=== PATIENT | female | born 1960 | race Caucasian/White ===

== ENCOUNTER 2020-06-14 14:49 | Outpatient (CLI) | payer OTHER, SELFPAY ==
--- NOTE | ~2020-06-14 | MR_ITS ---
EXAMINATION: MR lumbar spine wo con EXAM DATE: 06/14/2020 16:11 INDICATION: Low back pain with radiculopathy, affecting left lower extremity. 2 Recent falls. TECHNIQUE: Multi-sequential, multiplanar MR images of the lumbar spine were obtained without contrast . Sagittal T1, T2, T2 fat saturation images. Axial T2 weighted images. There is no prior study for comparison. FINDINGS: There is mild disc disease L2-3, L4-5 and L5-S1. The conus medullaris terminates at the L1 level and has normal signal intensity and morphology. The vertebral bodies are aligned in the AP dime nsion. There are no suspicious marrow signal abnormalities. Paraspinal soft tissue is unremarkable. Level by level evaluation: T12-L1: Disc does not extend beyond the endplate margin. Facet arthropathy: None. Neural foraminal stenosis: No stenosis. Central canal stenosis: No stenosis. L1-L2: Disc does not extend beyond the endplate margin. Facet arthropathy: None. Neural foraminal stenosis: No stenosis. Central canal stenosis: No stenosis. L2-L3: There is a minimal diffuse disc bulge. Facet arthropathy: Mild. Neural foraminal stenosis: No stenosis. Central canal stenosis: No stenosis. L3-L4: Disc does not extend beyond the endplate margin. Facet arthropathy: Mild. Neural foraminal stenosis: No stenosis. Central canal stenosis: No stenosis. L4-L5: There is a mild diffuse disc bulge. Facet arthropathy: Mild to moderate. Neural foraminal stenosis: No stenosis. Central canal stenosis: Mild. L5-S1: There is a mild diffuse disc bulge. Facet arthropathy: Mild. Neural foraminal stenosis: Mild left. Central canal stenosis: No stenosis. IMPRESSION: 1. Mild lumbar spondylosis. Reviewed, dictated and finalized at location A. IMPRESSION: 1. Mild lumbar spondylosis.
== END 2020-06-14 14:50 | disposition home or self-care (01) ==
PROVIDERS: PCP Family Medicine; Visit Provider Nurse Practitioner Family
DX: M47.26 Other spondylosis with radiculopathy, lumbar region (principal)
CPT/HCPCS: 72148

== ENCOUNTER → 2020-12-21 12:18 | Outpatient (CLI) | payer OTHER, SELFPAY ==
[2020-12-21 14:43] LABS: Influenza Control Positive
[2020-12-21 22:34] LABS: SARS-CoV-2 RNA PCR Positive
== END ==
PROVIDERS: PCP Family Medicine; Visit Provider Nurse Practitioner Family
DX: U07.1 COVID-19 (principal)
CPT/HCPCS: 87804; C9803; U0003; U0005

== ENCOUNTER → 2021-04-18 06:40 | Outpatient (CLI) | payer OTHER, SELFPAY ==
[2021-04-18 23:32] LABS: SARS-CoV-2 RNA PCR Negative
== END ==
PROVIDERS: PCP Family Medicine; Visit Provider Family Medicine
DX: R68.89 Other general symptoms and signs (principal); Z20.822 Contact with and (suspected) exposure to COVID-19
CPT/HCPCS: C9803; U0003; U0005

== ENCOUNTER → 2022-01-18 11:38 | Outpatient (CLI) | payer OTHER, SELFPAY ==
--- NOTE | ~2022-01-18 | XR_ITS ---
EXAMINATION:[id number] DATE: 01/18/2022 12:53 INDICATION: Neck pain TECHNIQUE: AP, lateral, and odontoid views of the cervical spine are provided. COMPARISON: None FINDINGS: Alignment is normal. The odontoid is intact. No fracture is identified. Vertebral body heig hts are normal. There is mild loss of intervertebral disc space height from C4-5 through C6-7. Small degenerative osteophytes project from the anterior endplates of multiple vertebral bodies. Prevertebr al soft tissues are normal. IMPRESSION: 1. Mild cervical spondylosis without acute findings. Reviewed, dictated and finalized at location B. RCOACH OPERATOR
--- NOTE | ~2022-01-18 | XR_ITS ---
EXAMINATION: XR thoracic spine 2V DATE: 01/18/2022 12:53 INDICATION: Dorsalgia unspecified TECHNIQUE: AP, lateral and lateral swimmer's views of the thoracic spine were obtained. COMPARISON: None. FINDINGS: Bone alignment is normal. There is no fracture. The vertebral body heights are maintained. There is mild loss of intervertebral disc space height at multiple levels in the thoracic spine. Smal l degenerative osteophytes project from the anterior endplates of multiple vertebral bodies. IMPRESSION: 1. Mild thoracic spondylosis without acute findings. Reviewed, dictated and finalized at location B. AIN FITTER
== END ==
PROVIDERS: PCP Nurse Practitioner Family; Visit Provider Nurse Practitioner Family
DX: M47.894 Other spondylosis, thoracic region (principal); M47.892 Other spondylosis, cervical region
CPT/HCPCS: 72040; 72070

== ENCOUNTER → 2022-08-21 15:14 | Outpatient (CLI) | payer OTHER, SELFPAY ==
--- NOTE | ~2022-08-21 | XR_ITS ---
EXAMINATION: XR chest 2V DATE: 08/21/2022 15:45 INDICATION: Cough, unspecified TECHNIQUE: PA and lateral views of the chest are obtained. COMPARISON: 01/13/2018 FINDINGS: The lungs are free of acute opacities. No pleural effusion or pneumothorax. The cardiomedia stinal silhouette is normal. There is mild thoracic spondylosis. IMPRESSION: 1. No acute cardiopulmonary abnormality. Reviewed, dictated and finalized at location A.
== END ==
PROVIDERS: PCP Family Medicine; Visit Provider Nurse Practitioner Family
DX: R05.9 Cough, unspecified (principal)
CPT/HCPCS: 71046

== ENCOUNTER → 2022-10-12 11:20 | Outpatient (CLI) | payer OTHER, SELFPAY ==
--- NOTE | ~2022-10-12 | CT_ITS ---
EXAMINATION: CT sinus wo con DATE: 10/12/2022 11:39 INDICATION: Chronic sinusitis TECHNIQUE: Computed tomography (CT) of the paranasal sinuses was performed without contrast. Iterativ e reconstruction technique was employed. Exam dose: 255.24 mGy-cm total exam DLP. COMPARISON: None FINDINGS: There is rightward bowing of the upper half of the nasal septum and leftward bowing of the lower portion. There is intralamellar cell of the middle nasal turbinates, more prominent on the left. There is asymmetric soft tissue swelling of the left middle and inferior nasal turbinates. The ostiomeatal units are patent. There is minimal mucoperiosteal thickening at the roof and floor of each maxillary sinus. The paranas al sinuses are otherwise normally developed and aerated. The mastoid air cells are normally developed and aerated bilaterally. IMPRESSION: Nasal septal bowing Asymmetric prominence of the left middle and inferior nasal turbinates Intralamellar cell of both middle nasal turbinates Patent ostiomeatal units Minimal mucoperiosteal thickening at the roof and floor of each maxillary sinus; otherwise patent par anasal sinuses and mastoid air cells Reviewed, dictated and finalized at Location A. Reviewed, dictated and finalized at location B. OARDER IMPRESSION: Nasal septal bowing Asymmetric prominence of the left middle and inferior nasal turbinates Intralamellar cell of both middle nasal turbinates Patent ostiomeatal units Minimal mucoperiosteal thickening at the roof and floor of each maxillary sinus ; otherwise patent paranasal sinuses and mastoid air cells
== END ==
PROVIDERS: PCP Family Medicine; Visit Provider Allergy & Immunology
DX: J32.9 Chronic sinusitis, unspecified (principal)
CPT/HCPCS: 70486

== ENCOUNTER → 2022-10-12 11:41 | Outpatient (CLI) | payer OTHER, SELFPAY ==
--- NOTE | ~2022-10-12 | MM_ITS ---
EXAMINATION: MM screening [facility] BI w mariya HISTORY: Screening mammogram TECHNIQUE: Craniocaudal and mediolateral oblique 3-D tomosynthesis images were obtained and synthetic 2-D images were generated. CAD analysis was submitted and interpreted. COMPARISON: 12/24/2016, 07/03/2011 BREAST PARENCHYMAL COMPOSITION: There are scattered areas of fibroglandular density. FINDINGS: No suspicious mass, calcification, or architectural distortion are identified in either oswald ast to suggest malignancy. There has been no suspicious interval change. IMPRESSION: 1. No mammographic evidence of malignancy. 2. Recommend routine screening mammography in one year. BI-RADS Category 1: Negative Reviewed, dictated and finalized at location A. OR ORACLE DEVELOPER
== END ==
PROVIDERS: PCP Family Medicine; Visit Provider Nurse Practitioner Family
DX: Z12.31 Encounter for screening mammogram for malignant neoplasm of breast (principal)
CPT/HCPCS: 77063; 77067